=== PATIENT | female | born 1960 | race Caucasian/White ===

== ENCOUNTER 2016-11-29 09:48 | Emergency (ER) | payer MEDICARE, MEDICAID ==
[~2016-11-29] VITALS: Ht 162.6 cm; Wt 129.5 kg
[~2016-11-29 09:48] MED LIST: ACLI400A2 INH; ALBU0.63 NEB; ALBU8.5H3 INH; ALBU8.5H5 INH; ALPR0.257 PO; AMOX1TAB12; FLUT15CR NAS; FLUT1DIS; FLUT1DIS5 IH; OXYC10TA32 PO; OXYC10TA6 PO; OXYC1TAB9 PO; SERT100T5 PO; TOPI100T94 PO; TOPI50TA35 PO
[2016-11-29 09:51] VITALS: BP 128/80
== END 2016-11-29 10:55 | disposition home or self-care (01) ==
LOC: ED 10:40
DX: J01.00 Acute maxillary sinusitis, unspecified (principal); H60.91 Unspecified otitis externa, right ear; J45.909 Unspecified asthma, uncomplicated; J44.9 Chronic obstructive pulmonary disease, unspecified; Z90.49 Acquired absence of other specified parts of digestive tract
CPT/HCPCS: 99283

== ENCOUNTER 2017-01-04 12:03 | Emergency (ER) | payer MEDICARE, MEDICAID ==
[~2017-01-04] VITALS: Ht 162.6 cm; Wt 125.0 kg
[2017-01-04 12:06] VITALS: BP 129/85
== END 2017-01-04 12:39 | disposition left against medical advice (07) ==
LOC: ED 12:36
DX: R09.81 Nasal congestion (principal); R06.00 Dyspnea, unspecified; Z53.21 Procedure and treatment not carried out due to patient leaving prior to being seen by health care provider

== ENCOUNTER 2017-05-30 10:10 | Emergency (ER) | payer MEDICARE, MEDICAID ==
[~2017-05-30] VITALS: Ht 162.6 cm; Wt 125.0 kg
[~2017-05-30 10:10] MED LIST changes: -ALBU8.5H3 INH; +ALBU8.5H8 INH; -OXYC10TA32 PO; +OXYC10TA47 PO; +TOPI100T8 PO; -TOPI100T94 PO
[2017-05-30 10:11] VITALS: BP 165/105
[2017-05-30 10:54] LABS: HEMATOCRIT 49.3 % (34.6-47.8); HEMOGLOBIN 16.4 g/dL (11.7-16.4)
[2017-05-30 11:03] LABS: BLOOD UREA NITROGEN 18 mg/dL (7-18)
== END 2017-05-30 11:29 | disposition home or self-care (01) ==
LOC: ED 11:05
DX: J20.9 Acute bronchitis, unspecified (principal); J44.0 Chronic obstructive pulmonary disease with (acute) lower respiratory infection; Z90.49 Acquired absence of other specified parts of digestive tract; Z87.891 Personal history of nicotine dependence
CPT/HCPCS: 36415; 71010; 80048; 82040; 85025; 99285; J7512

== ENCOUNTER 2017-08-31 12:05 | Emergency (ER) | payer MEDICAID, MEDICARE ==
[~2017-08-31] VITALS: Ht 162.6 cm; Wt 127.2 kg
[2017-08-31 12:08] VITALS: BP 136/83
[2017-08-31] MEDS ORDERED: IBUPROFEN 200 MG TABLET ONE (12:41)
[2017-08-31] MEDS ORDERED: IBUPROFEN 800 MG TABLET PO SCH (13:00)
[2017-08-31] MEDS ORDERED: IBUPROFEN 800 MG TABLET PO ONE (13:30)
== END 2017-08-31 13:00 | disposition home or self-care (01) ==
LOC: ED 12:50
DX: H66.003 Acute suppurative otitis media without spontaneous rupture of ear drum, bilateral (principal); J44.9 Chronic obstructive pulmonary disease, unspecified
CPT/HCPCS: 99283

== ENCOUNTER 2017-09-22 05:35 | Emergency (ER) | payer MEDICARE ==
[~2017-09-22] VITALS: Ht 162.6 cm; Wt 132.0 kg
[2017-09-22 05:38] VITALS: BP 126/87
[2017-09-22] MEDS ORDERED: DEXAMETHASONE 4 MG TABLET ONE (06:48)
[2017-09-22] MEDS ORDERED: DEXAMETHASONE 4 MG TABLET PO ONE (07:00)
== END 2017-09-22 07:39 | disposition home or self-care (01) ==
LOC: ED 07:00
DX: J32.0 Chronic maxillary sinusitis (principal); J44.9 Chronic obstructive pulmonary disease, unspecified; H92.01 Otalgia, right ear; Z99.81 Dependence on supplemental oxygen
CPT/HCPCS: 99283